=== PATIENT | female | born 1985 | race Two or more races ===

== ENCOUNTER 2016-12-24 10:25 | Observation (INO) | payer MEDICAID ==
[~2016-12-24] VITALS: Ht 157.5 cm; Wt 73.9 kg
[2016-12-24] MEDS ORDERED: BETAMETHASONE ACET (6MG/ML) 5ML VIAL IM ONE (11:00)
== END 2016-12-24 13:00 | disposition home or self-care (01) | DRG 566 ==
LOC: LDRP 10:25
PROVIDERS: ADMIT Specialist; ATTEND Specialist
DX: O40.3XX0 Polyhydramnios, third trimester, not applicable or unspecified (principal); O26.893 Other specified pregnancy related conditions, third trimester; O60.00 Preterm labor without delivery, unspecified trimester; R10.9 Unspecified abdominal pain; Z3A.31 31 weeks gestation of pregnancy
CPT/HCPCS: 59025; 76818; 81002; 96372; G0378; J0702

== ENCOUNTER 2016-12-25 11:30 | Observation (INO) | payer MEDICAID ==
[~2016-12-25] VITALS: Ht 157.5 cm; Wt 87.1 kg
[2016-12-25 12:29] LABS: Urine Bilirubin Negative (Negative); Urine Blood Negative /uL (Negative); Urine Color Yellow (Yellow); Urine Ketone Negative (Negative); Urine Mucus FEW (None Seen); Urine Nitrite Negative (Negative); Urine RBC 5 /hpf (0 - 4); Urine Squamous Epithelial Cell FEW /hpf (<5); Urine Urobilinogen Normal (Negative)
[2016-12-25 12:30] LABS: Urine Glucose 3+ mg/dL (Normal)
[2016-12-25] MEDS ORDERED: BETAMETHASONE ACET (6MG/ML) 5ML VIAL IM ONE (22:00)
== END 2016-12-25 12:30 | disposition home or self-care (01) | DRG 563 ==
LOC: LDRP 11:30
PROVIDERS: ADMIT Specialist; ATTEND Specialist
DX: O60.03 Preterm labor without delivery, third trimester (principal); Z3A.31 31 weeks gestation of pregnancy
CPT/HCPCS: 59025; 81001; 81002; 96372; G0378

== ENCOUNTER 2017-01-01 12:00 | Observation (INO) | payer MEDICAID | END 2017-01-01 14:15 | disposition home or self-care (01) | DRG 566 | LOC: LDRP 12:00 | PROVIDERS: ADMIT Obstetrics & Gynecology; ATTEND Obstetrics & Gynecology | DX: O40.3XX0 Polyhydramnios, third trimester, not applicable or unspecified (principal); Z3A.32 32 weeks gestation of pregnancy | CPT/HCPCS: 59025; 76818; 81002; G0378 ==

== ENCOUNTER 2017-01-06 12:55 | Observation (INO) | payer MEDICAID ==
[2017-01-06 14:48] LABS: Urine Bilirubin Negative (Negative); Urine Blood Negative /uL (Negative); Urine Color Yellow (Yellow); Urine Glucose TRACE mg/dL (Normal); Urine Ketone Negative (Negative); Urine Nitrite Negative (Negative); Urine RBC 2 /hpf (0 - 4); Urine Squamous Epithelial Cell FEW /hpf (<5); Urine Urobilinogen Normal (Negative); Urine pH 6.5 (5.0-8.0)
== END 2017-01-06 14:15 | disposition home or self-care (01) | DRG 566 ==
LOC: LDRP 12:55
PROVIDERS: ADMIT Specialist; ATTEND Specialist
DX: O40.3XX0 Polyhydramnios, third trimester, not applicable or unspecified (principal); Z3A.33 33 weeks gestation of pregnancy
CPT/HCPCS: 59025; 76818; 81001; 81002; G0378

== ENCOUNTER 2017-01-09 10:50 | Observation (INO) | payer MEDICAID ==
[2017-01-09] MEDS ORDERED: NIF10C GT (12:29)
[2017-01-09] MEDS ORDERED: PROG100C4 PO (12:30)
== END 2017-01-09 12:40 | disposition home or self-care (01) | DRG 566 ==
LOC: LDRP 10:50
PROVIDERS: ADMIT Specialist; ATTEND Specialist
DX: O26.893 Other specified pregnancy related conditions, third trimester (principal); R10.9 Unspecified abdominal pain; Z3A.33 33 weeks gestation of pregnancy
CPT/HCPCS: 59025; 76818; 81002; G0378

== ENCOUNTER 2017-01-13 12:10 | Observation (INO) | payer MEDICAID ==
[~2017-01-13 12:10] MED LIST: NIF10C GT; PROG100C4 PO
== END 2017-01-13 14:30 | disposition home or self-care (01) | DRG 566 ==
LOC: LDRP 12:10
PROVIDERS: ADMIT Specialist; ATTEND Specialist
DX: O40.3XX0 Polyhydramnios, third trimester, not applicable or unspecified
CPT/HCPCS: 59025; 76818; 81002; G0378

== ENCOUNTER 2017-01-20 11:40 | Observation (INO) | payer MEDICAID | END 2017-01-20 13:10 | disposition home or self-care (01) | DRG 566 | LOC: LDRP 11:40 | PROVIDERS: ADMIT Obstetrics & Gynecology; ATTEND Obstetrics & Gynecology | DX: O40.3XX0 Polyhydramnios, third trimester, not applicable or unspecified (principal); Z3A.35 35 weeks gestation of pregnancy | CPT/HCPCS: 59025; 76818; 81002; G0378 ==

== ENCOUNTER 2017-01-27 07:30 | Observation (INO) | payer MEDICAID | END 2017-01-27 09:45 | disposition home or self-care (01) | DRG 566 | LOC: LDRP 07:30 | PROVIDERS: ADMIT Obstetrics & Gynecology; ATTEND Obstetrics & Gynecology | DX: O40.3XX0 Polyhydramnios, third trimester, not applicable or unspecified (principal); Z3A.36 36 weeks gestation of pregnancy | CPT/HCPCS: 59025; 76818; 81002; G0378 ==

== ENCOUNTER 2017-01-30 11:00 | Inpatient (IN) | payer MEDICAID | END 2017-01-30 12:05 | disposition home or self-care (01) | DRG 566 | LOC: LDRP 11:00 | PROVIDERS: ADMIT Obstetrics & Gynecology; ATTEND Obstetrics & Gynecology | DX: O40.3XX0 Polyhydramnios, third trimester, not applicable or unspecified (principal); Z3A.36 36 weeks gestation of pregnancy | CPT/HCPCS: 59025; 76818; 81002 ==

== ENCOUNTER 2017-02-03 12:00 | Observation (INO) | payer MEDICAID | END 2017-02-03 13:10 | disposition home or self-care (01) | DRG 566 | LOC: LDRP 12:00 | PROVIDERS: ADMIT Specialist; ATTEND Specialist | DX: O40.3XX0 Polyhydramnios, third trimester, not applicable or unspecified (principal); Z3A.37 37 weeks gestation of pregnancy | CPT/HCPCS: 59025; 76818; 81002; G0378 ==

== ENCOUNTER 2017-02-08 11:15 | Observation (INO) | payer MEDICAID | END 2017-02-08 12:45 | disposition home or self-care (01) | DRG 566 | LOC: LDRP 11:15 | PROVIDERS: ADMIT Specialist; ATTEND Specialist | DX: O40.3XX0 Polyhydramnios, third trimester, not applicable or unspecified (principal); O62.9 Abnormality of forces of labor, unspecified; Z3A.37 37 weeks gestation of pregnancy | CPT/HCPCS: 59025; 76818; 81002; G0378 ==

== ENCOUNTER 2017-02-11 13:05 | Observation (INO) | payer MEDICAID | END 2017-02-11 15:10 | disposition home or self-care (01) | DRG 566 | LOC: LDRP 13:05 | PROVIDERS: ADMIT Specialist; ATTEND Specialist | DX: O40.3XX0 Polyhydramnios, third trimester, not applicable or unspecified (principal); O62.9 Abnormality of forces of labor, unspecified; Z3A.38 38 weeks gestation of pregnancy | CPT/HCPCS: 59025; 76818; 81002; G0378 ==

== ENCOUNTER 2017-02-14 08:00 | Observation (INO) | payer MEDICAID | END 2017-02-14 10:00 | disposition home or self-care (01) | DRG 566 | LOC: LDRP 08:00 | PROVIDERS: ADMIT Specialist; ATTEND Specialist | DX: O40.3XX0 Polyhydramnios, third trimester, not applicable or unspecified (principal); Z3A.38 38 weeks gestation of pregnancy | CPT/HCPCS: 59025; 76805; 76818; 81002; G0378 ==

== ENCOUNTER 2017-02-17 04:21 | Inpatient (IN) | payer MEDICAID ==
[2017-02-17] VITALS (14 sets, daily range): BP systolic 98–134; BP diastolic 52–69
[~2017-02-17] VITALS: Ht 157.5 cm; Wt 92.5 kg
[2017-02-17 05:27] LABS: Urine Bilirubin Negative (Negative); Urine Blood Negative /uL (Negative); Urine Color Yellow (Yellow); Urine Glucose Normal (Normal); Urine Ketone Negative (Negative); Urine Nitrite Negative (Negative); Urine RBC None Seen /hpf (0 - 4); Urine Squamous Epithelial Cell FEW /hpf (<5); Urine Urobilinogen Normal (Negative)
[2017-02-17 05:28] LABS: Basophils # (auto) 0 uL; Basophils % (auto) 0.3 % (0.0-2.0); Eosinophils # (auto) 0.1 uL; Eosinophils % (auto) 0.9 % (0.0-7.0); Hematocrit 37.9 % (36.0-46.0); Hemoglobin 12.8 g/dL (12.2-16.2); Lymphocytes # (auto) 2.1 uL; Lymphocytes % (auto) 22.2 % (10.0-50.0); Mean Corpuscular Hemoglobin 27.1 pg (28.0-32.0); Mean Corpuscular Hgb Conc. 33.8 g/dL (32.0-36.0); Mean Corpuscular Volume 80.2 fL (80.0-100.0); Mean Platelet Volume 8.1 fL (7.4-10.4); Monocytes # (auto) 0.5 uL; Monocytes % (auto) 4.7 % (0.0-12.0); Neutrophils # (auto) 6.9 uL; Neutrophils % (auto) 71.9 % (37.0-80.0); Platelet Count (auto) 243 10^3/uL (140-450); White Blood Cell 9.6 10^3/uL (4.4-10.8)
[2017-02-17 05:49] LABS: Albumin 2.8 g/dL (3.4-5.0); Calcium 8.8 mg/dL (8.5-10.1)
[2017-02-17 05:50] LABS: INR 0.93 (0.9-1.15); Partial Thromboplastin Time 28.3 sec (22.64-33.71); Prothrombin Time 10.1 sec (9.37-12.3)
[2017-02-17 05:51] LABS: BUN/Creatinine Ratio 22.5
[2017-02-17 05:54] LABS: Bilirubin, Total 0.4 mg/dL (0.2-1.0); Total Protein 7.8 g/dL (6.4-8.2)
[2017-02-17] MEDS ORDERED: PHENYLEPHRINE HCL 10 MG/ML VL IV ONE (07:15)
[2017-02-17] MEDS ORDERED: TETRACAINE 1% INJ 2 ML VIAL IJ ONE (07:23)
[2017-02-17] MEDS ORDERED: MORPHINE SULF(PF) 0.5MG/ML 10ML VIAL ONE (07:27)
[2017-02-17] MEDS ORDERED: fentaNYL CITRATE 100 MCG/2 ML VL ONE (07:27)
[2017-02-17] MEDS ORDERED: MIDAZOLAM HCL 1MG/1ML-2 ML VIAL ONE (07:27)
[2017-02-17] MEDS ORDERED: OXYTOCIN 10 UNIT/ML 10ML VIAL ONE (07:53)
[2017-02-17] MEDS ORDERED: ceFAZolin 1GM VL ONE (07:53)
[2017-02-17] MEDS ORDERED: HYDROmorphone HCL 2 MG/ML VL IV PRN ×2 (08:30→08:45)
[2017-02-17] MEDS ORDERED: ONDANSETRON HCL 4 MG/2 ML VIAL IV PRN ×2 (08:30→08:45)
[2017-02-17] MEDS ORDERED: LACT. RINGERS/OXYTOCIN 20UNITS 1,000 ML IV SCH (08:30)
[2017-02-17] MEDS ORDERED: MORPHINE SULF INJ 2 MG/ML SYRINGE 1ML IV PRN (08:30)
[2017-02-17] MEDS ORDERED: LABETALOL HCL 5 MG/ML 4ML SYRINGE IV PRN (08:45)
[2017-02-17] MEDS ORDERED: NALOXONE HCL 0.4 MG/ML VIAL IV PRN (08:45)
[2017-02-17] MEDS ORDERED: KETOROLAC TROMETH 30 MG/ML 1ML VIAL IV PRN (08:45)
[2017-02-17] MEDS ORDERED: DEXAMETHASONE SOD PHOS 10MG/1ML VIAL INJ IV PRN (08:45)
[2017-02-17] MEDS ORDERED: NALBUPHINE HCL 10 MG/1ml INJECTION SUBCUT ONE (08:45)
[2017-02-17] MEDS ORDERED: diphenhdrAMINE HCL 50 MG/1 ML VL IV PRN (08:45)
[2017-02-17] MEDS ORDERED: ePHEDrine SULFATE 50 MG/ML AMP IV PRN (08:45)
[2017-02-17] MEDS: LACTATED RINGER'S 1,000 ML IV SCH ×2 (12:34→22:10)
[2017-02-17] MEDS ORDERED: PREN-96 PO (12:35)
[2017-02-17] MEDS: ceFAZolin 1GM/50ML D5W 50 ML IV SCH ×2 (14:07→22:10)
[2017-02-17] MEDS: KETOROLAC TROMETH 30 MG/ML 1ML VIAL IV PRN (16:06)
[2017-02-17 20:44] LABS: Basophils # (auto) 0 uL; Basophils % (auto) 0.4 % (0.0-2.0); DEFINITIVE VIEW TRANSMISSION; Eosinophils # (auto) 0.1 uL; Eosinophils % (auto) 1.1 % (0.0-7.0); Hematocrit 36.3 % (36.0-46.0); Lymphocytes % (auto) 21.5 % (10.0-50.0); Mean Corpuscular Hemoglobin 26.9 pg (28.0-32.0); Mean Corpuscular Hgb Conc. 33.1 g/dL (32.0-36.0); Mean Corpuscular Volume 81.3 fL (80.0-100.0); Mean Platelet Volume 8.5 fL (7.4-10.4); Monocytes # (auto) 0.4 uL; Monocytes % (auto) 4.5 % (0.0-12.0); Neutrophils # (auto) 6.9 uL; Neutrophils % (auto) 72.5 % (37.0-80.0); Platelet Count (auto) 226 10^3/uL (140-450); Red Cell Distribution Width 16.3 % (11.6-16.0); White Blood Cell 9.5 10^3/uL (4.4-10.8)
[2017-02-18] VITALS (10 sets, daily range): BP systolic 105–148; BP diastolic 52–77
[2017-02-18] MEDS: KETOROLAC TROMETH 30 MG/ML 1ML VIAL IV PRN (02:46)
[2017-02-18] MEDS: ceFAZolin 1GM/50ML D5W 50 ML IV SCH (05:55)
[2017-02-18 08:03] LABS: Basophils # (auto) 0 uL; Basophils % (auto) 0.1 % (0.0-2.0); Eosinophils # (auto) 0 uL; Eosinophils % (auto) 0.3 % (0.0-7.0); Hematocrit 36.9 % (36.0-46.0); Hemoglobin 12.8 g/dL (12.2-16.2); Lymphocytes # (auto) 0.6 uL; Lymphocytes % (auto) 6.8 % (10.0-50.0); Mean Corpuscular Hemoglobin 27.9 pg (28.0-32.0); Mean Corpuscular Hgb Conc. 34.5 g/dL (32.0-36.0); Mean Corpuscular Volume 80.8 fL (80.0-100.0); Mean Platelet Volume 8.2 fL (7.4-10.4); Monocytes # (auto) 0.3 uL; Monocytes % (auto) 3.1 % (0.0-12.0); Neutrophils # (auto) 7.8 uL; Neutrophils % (auto) 89.7 % (37.0-80.0); Platelet Count (auto) 191 10^3/uL (140-450); White Blood Cell 8.6 10^3/uL (4.4-10.8)
[2017-02-18] MEDS ORDERED: HYDROcodone-ACET 5/325MG TAB PO PRN (08:15)
[2017-02-18] MEDS: DOCUSATE SOD 100 MG CAP PO SCH ×2 (09:30→22:25)
[2017-02-18] MEDS: IBUPROFEN 800 MG TAB PO PRN ×2 (11:51→20:10)
[2017-02-18] MEDS ORDERED: ceFAZolin 1GM/50ML D5W 50 ML IV ONE (14:00)
[2017-02-18] MEDS: HYDROcodone-ACET 5/325MG TAB PO PRN ×2 (16:36→21:15)
[2017-02-18] MEDS ORDERED: ceFAZolin 1GM/50ML D5W 50 ML IV SCH (22:00)
[2017-02-18] MEDS ORDERED: CEPHALEXIN 250 MG CAP PO ONE (22:20)
[2017-02-19] MEDS: HYDROcodone-ACET 5/325MG TAB PO PRN ×5 (02:55→21:31)
[2017-02-19 03:00] VITALS: BP 112/63
[2017-02-19] MEDS: IBUPROFEN 800 MG TAB PO PRN ×2 (07:25→15:42)
[2017-02-19 08:00] VITALS: BP 102/64
[2017-02-19] MEDS: DOCUSATE SOD 100 MG CAP PO SCH ×2 (10:00→21:59)
[2017-02-19] MEDS: CEPHALEXIN 250 MG CAP PO SCH ×2 (12:00)
[2017-02-19 12:24] VITALS: BP 112/61
[2017-02-19 16:01] VITALS: BP 111/76
[2017-02-19 19:15] VITALS: BP 105/59
[2017-02-19 23:30] VITALS: BP 97/59
[2017-02-20] MEDS: CEPHALEXIN 250 MG CAP PO SCH ×2 (00:01→06:09)
[2017-02-20] MEDS: IBUPROFEN 800 MG TAB PO PRN (00:01)
[2017-02-20 04:00] VITALS: BP 107/61
[2017-02-20] MEDS: HYDROcodone-ACET 5/325MG TAB PO PRN (06:50)
[2017-02-20 08:23] VITALS: BP 95/83
[2017-02-20] MEDS: DOCUSATE SOD 100 MG CAP PO SCH (09:41)
== END 2017-02-20 10:50 | disposition home or self-care (01) | DRG 540 ==
LOC: LDRP 04:21 → OBSVTOIN 04:21 → LDRP 08:52
PROVIDERS: ADMIT Specialist; ATTEND Specialist
PROC: 10D00Z1 Extraction of Products of Conception, Low, Open Approach (ICD-10-PCS; principal; 2017-02-17 07:29)
DX: O32.1XX0 Maternal care for breech presentation, not applicable or unspecified (principal); O99.824 Streptococcus B carrier state complicating childbirth; O40.9XX0 Polyhydramnios, unspecified trimester, not applicable or unspecified; Z37.0 Single live birth; Z3A.39 39 weeks gestation of pregnancy
CPT/HCPCS: 36415; 51702; 59025; 80053; 81001; 85025; 85610; 85730; 86850; 86900; 86901; 96361; 96366; J0690; J1885; J2250; J2590